=== PATIENT | female | born 1970 | race Caucasian/White ===

== ENCOUNTER 2019-02-01 18:32 | Emergency (ER) | payer BC, SELFPAY ==
[2019-02-01 18:37] VITALS: BP 116/60; PULSE 81; RESP 16; TEMP 36.8; O2SAT 100
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
--- NOTE | 2019-02-01 18:48 | DI.RAD_ITS ---
SYMPTOM/DIAGNOSIS; ELBOW PAIN AFTER FALL. LEFT ELBOW: There is soft tissue swelling. The lateral view is slightly rotated. No fracture is identified. There is calcification adjacent to the lateral malleolus representing tendon or ligament calcification. IMPRESSION: Soft tissue swelling. No evidence of fracture.
[2019-02-01] MEDS: Ondansetron O.D.T. 4 MG TABEF PO (18:51)
--- NOTE | 2019-02-01 19:18 | DI.RAD_ITS ---
SYMPTOM/DIAGNOSIS: PAIN, PROXIMAL HUMERUS LEFT SHOULDER: No fracture or dislocation is seen. There are mild degenerative changes of the AC joint. The visualized portions of the left ribs appear intact. No pneumothorax is seen. IMPRESSION: Mild degenerative changes. No acute abnormality.
--- NOTE | 2019-02-01 19:27 | DI.VRAD_ITS ---
EXAM: XR Left Elbow EXAM DATE/TIME: 02/01/2019 6:49 PM CLINICAL HISTORY: 48 years old, female; Other: Lt elbow pain after fall TECHNIQUE: Imaging protocol: XR Left elbow. Views: 3 or more views. COMPARISON: No relevant prior studies available. FINDINGS: Bones/joints: There is no acute bony injury. There is no joint effusion. Soft tissues: There is soft tissue swelling of the lateral and dorsal aspect of the left elbow. There is calcification within the lateral collateral ligament from old injury. IMPRESSION: 1. No acute bony injury. 2. Soft tissue swelling. Dictated and Authenticated by: Brandee Moreno MD. Ordering:CAYLA Angel MD
--- NOTE | 2019-02-01 19:31 | DI.VRAD_ITS ---
EXAM: XR Left Shoulder EXAM DATE/TIME: 02/01/2019 7:07 PM CLINICAL HISTORY: 48 years old, female; Pain; Shoulder; Left TECHNIQUE: Imaging protocol: XR Left shoulder. Views: 2 or more views. COMPARISON: No relevant prior studies available. FINDINGS: Bones/joints: Normal. Soft tissues: Normal. IMPRESSION: No acute findings. Dictated and Authenticated by: Brandee Moreno MD. Ordering:CAYLA Angel MD
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
== END 2019-02-01 20:00 | disposition home or self-care (01) ==
PROVIDERS: Emergency Provider Emergency Medicine
DX: S42.452A Displaced fracture of lateral condyle of left humerus, initial encounter for closed fracture (principal); R11.0 Nausea; V17.5XXA Pedal cycle passenger injured in collision with fixed or stationary object in traffic accident, initial encounter
CPT/HCPCS: 99253; 99284; 73030; 73080; 99282